=== PATIENT | male | born 1970 | race Caucasian/White ===

== ENCOUNTER 2018-10-01 22:16 | Emergency (ER) | payer OTHER ==
[~2018-10-01] VITALS: Ht 165.1 cm; Wt 71.2 kg
[2018-10-01 22:28] VITALS: Ht 165.1 cm; Wt 71.2 kg
--- NOTE | 2018-10-01 23:41 | ERD ---
ER Documentation Chief Complaint Chief Complaint chest pain/anxiety x 1 week HPI This is a 48-year-old male with a past history of anxiety, who presents with chest pain for the last week. Pain is described as nonexertional, it is as sociated with carpopedal spasms, tingling of his nails, and an impending feeling of doom. Patient states that he has been under a lot of stress lately from work, and has felt increasingly anxious. He denies leg swelling, hemoptysis, he does not smoke or drink, he has no history of hypertension, no history of hyperlipidemia, no history of diabetes. ROS All systems reviewed and are negative except as per history of present illness. Medications Home Meds Active Scripts Lorazepam* (Ativan*) 0.5 Mg Tablet, 0.5 MG PO Q8, #7 TAB Prov:GLORIA CADE MD 10/02/18 Allergies Allergies: Coded Allergies: No Known Drug Allergies (Verified Allergy, Unknown, 10/01/18) Physical Exam Vitals Vital Signs Date Temp Pulse Resp B/P (MAP) Pulse Ox O2 O2 Flow FiO2 Time Delivery Rate 10/02/18 99 21 127/88 100 Room Air 02:06 (101) 10/02/18 98.5 89 24 133/87 98 Room Air 00:33 (102) 10/01/18 97.2 116 18 150/88 98 22:28 (108) Physical Exam Const: No acute distress Head: Atraumatic Eyes: Normal Conjunctiva ENT: Normal External Ears, Nose and Mouth. Neck: Full range of motion. No meningismus. Resp: Clear to auscultation bilaterally Cardio: Regular rate and rhythm, no murmurs Abd: Soft, non tender, non distended. Normal bowel sounds Skin: No petechiae or rashes Back: No midline or flank tenderness Ext: No cyanosis, or edema Neur: Awake and alert Psych: Normal Mood and Affect Result Diagram: 10/01/18 0000 10/01/18 0000 Results 24 hrs Laboratory Tests Test 10/01/18 00:00 White Blood Count 12.5 10^3/ul Red Blood Count 5.52 10^6/ul Hemoglobin 15.4 g/dl Hematocrit 47.4 % Mean Corpuscular Volume 85.9 fl Mean Corpuscular Hemoglobin 27.9 pg Mean Corpuscular Hemoglobin Concent 32.5 g/dl Red Cell Distribution Width 13.1 % Platelet Count 293 10^3/UL Mean Platelet Volume 9.6 fl Immature Granulocytes % 0.900 % Neutrophils % 71.8 % Lymphocytes % 16.0 % Monocytes % 8.8 % Eosinophils % 1.8 % Basophils % 0.7 % Nucleated Red Blood Cells % 0.0 /100WBC Immature Granulocytes # 0.110 10^3/ul Neutrophils # 9.0 10^3/ul Lymphocytes # 2.0 10^3/ul Monocytes # 1.1 10^3/ul Eosinophils # 0.2 10^3/ul Basophils # 0.1 10^3/ul Nucleated Red Blood Cells # 0.0 10^3/ul Prothrombin Time 11.6 Sec Prothrombin Time Ratio 0.9 INR International Normalized Ratio 0.84 Sodium Level 139 mmol/L Potassium Level 4.2 mmol/L Chloride Level 100 mmol/L Carbon Dioxide Level 31 mmol/L Anion Gap 8 Blood Urea Nitrogen 21 mg/dl Creatinine 1.14 mg/dl Est Glomerular Filtrat Rate mL/min > 60 mL/min Glucose Level 100 mg/dl Calcium Level 9.7 mg/dl Total Bilirubin 0.1 mg/dl Direct Bilirubin 0.00 mg/dl Indirect Bilirubin 0.1 mg/dl Aspartate Amino Transf (AST/SGOT) 20 IU/L Alanine Aminotransferase (ALT/SGPT) 16 IU/L Alkaline Phosphatase 91 IU/L Troponin I < 0.012 ng/ml Total Protein 7.9 g/dl Albumin 4.3 g/dl Globulin 3.60 g/dl Albumin/Globulin Ratio 1.19 Procedures/MDM 48-year-old male who presents for evaluation of chest pain. This pain is atypical in nature, given that is nonexertional, it appears that last moments, and is very situational. Based on his heart score, he is low risk, I did consider an anxiety reaction, however I did evaluate from for acute coronary syndrome, given male sex and age of 48. His cardiac workup was negative, he requested medication for anxiety, I provided him a short course, but nevertheless, advised him to follow-up within 48 hours, for further cardiac evaluation, the patient agreed to this, I advised him to return to the ED, if he is not able to obtain follow-up, and her to return immediately should his chest pain change in quality, nature, duration, or severity. Patient agreed to this, at discharge she was in no acute distress. Chest X-ray 1V Interpreted by me: Soft Tissue: No acute abnormalities Bones: No acute abnormalities Mediastinum/Cardiac Silhouette/Lungs: No acute abnormalities EKG: Rate/Rhythm: Normal Sinus Rhythm QRS, ST, T-waves: No changes consistent w/ acute ischemia Impression: No evidence of ischemia or arrhythmia Repeat EKG: Rate/Rhythm: Normal Sinus Rhythm QRS, ST, T-waves: No changes consistent w/ acute ischemia Impression: No evidence of ischemia or arrhythmia Departure Diagnosis: Primary Impression: Chest pain Chest pain type: unspecified Qualified Codes: R07.9 - Chest pain, unspecified GLORIA CADE MD Oct 01, 2018 23:41
[2018-10-02 02:06] VITALS: BP 127/88; PULSE 99; RESP 21
[2018-10-02] MEDS ORDERED: LORA-441 PO (02:08)
== END 2018-10-02 02:27 | disposition home or self-care (01) ==
LOC: E/R 22:16
DX: R07.9 Chest pain, unspecified (principal); R40.2142 Coma scale, eyes open, spontaneous, at arrival to emergency department; R40.2362 Coma scale, best motor response, obeys commands, at arrival to emergency department; R40.2252 Coma scale, best verbal response, oriented, at arrival to emergency department
CPT/HCPCS: 71045; 80053; 84484; 85025; 85610; Z7502

== ENCOUNTER 2018-10-26 20:18 | Emergency (ER) | payer OTHER ==
[~2018-10-26] VITALS: Ht 167.6 cm; Wt 69.0 kg
[~2018-10-26 20:18] MED LIST: LORA-441 PO
[2018-10-26 20:24] VITALS: Ht 167.6 cm; Wt 69.0 kg
[2018-10-26 22:30] VITALS: BP 126/80; PULSE 98; RESP 20
--- NOTE | 2018-10-27 01:22 | ERD ---
ER Documentation Chief Complaint Chief Complaint bilateral hand numbness x1 month. worse tonight. denies cp/sob/dizziness HPI Is a 48 mL complex bilateral hand numbness on and off for the past month. He said it was worse. He denies chest pain shortness of breath or dizziness. Denies any nausea vomiting fevers or chills. He denies any other current complaints. Patient complains of spasms in his carpal and pedal systems. Shilpa ent denies anxiety. Denies suicidal or homicidal ideation. ROS All systems reviewed and are negative except as per history of present illness. Medications Home Meds Active Scripts Lorazepam* (Ativan*) 0.5 Mg Tablet, 0.5 MG PO Q8, #7 TAB Prov:GLORIA CADE MD 10/02/18 Allergies Allergies: Coded Allergies: No Known Drug Allergies (Verified Allergy, Unknown, 10/01/18) PMhx/Soc History of Surgery: No Anesthesia Reaction: No Hx Neurological Disorder: No Hx Respiratory Disorders: No Hx Cardiac Disorders: No Hx Psychiatric Problems: No Hx Miscellaneous Medical Probl: Yes (Prediabetic) Hx Alcohol Use: Yes (Socially) Hx Substance Use: No Hx Tobacco Use: Yes (Quit in 1998) Smoking Status: Former smoker Physical Exam Vitals Vital Signs Date Temp Pulse Resp B/P (MAP) Pulse Ox O2 O2 Flow FiO2 Time Delivery Rate 10/26/18 97.8 98 20 126/80 98 Room Air 22:30 (95) 10/26/18 97.8 107 20 131/79 98 20:24 (96) Physical Exam Const: No acute distress Head: Atraumatic Eyes: Normal Conjunctiva ENT: Normal External Ears, Nose and Mouth. Neck: Full range of motion. No meningismus. Resp: Clear to auscultation bilaterally Cardio: Regular rate and rhythm, no murmurs Abd: Soft, non tender, non distended. Normal bowel sounds Skin: No petechiae or rashes Back: No midline or flank tenderness Ext: No cyanosis, or edema Neur: Awake and alert Psych: Normal Mood and Affect Result Diagram: 10/26/18 2300 10/26/18 230 Results 24 hrs Laboratory Tests Test 10/26/18 23:00 White Blood Count 10.8 10^3/ul Red Blood Count 5.20 10^6/ul Hemoglobin 14.6 g/dl Hematocrit 44.3 % Mean Corpuscular Volume 85.2 fl Mean Corpuscular Hemoglobin 28.1 pg Mean Corpuscular Hemoglobin Concent 33.0 g/dl Red Cell Distribution Width 12.9 % Platelet Count 332 10^3/UL Mean Platelet Volume 9.3 fl Immature Granulocytes % 0.600 % Neutrophils % 69.2 % Lymphocytes % 21.4 % Monocytes % 6.7 % Eosinophils % 1.5 % Basophils % 0.6 % Nucleated Red Blood Cells % 0.0 /100WBC Immature Granulocytes # 0.060 10^3/ul Neutrophils # 7.5 10^3/ul Lymphocytes # 2.3 10^3/ul Monocytes # 0.7 10^3/ul Eosinophils # 0.2 10^3/ul Basophils # 0.1 10^3/ul Nucleated Red Blood Cells # 0.0 10^3/ul Prothrombin Time 13.1 Sec Prothrombin Time Ratio 1.0 INR International Normalized Ratio 0.98 Activated Partial Thromboplast Time 25.4 Sec Sodium Level 140 mmol/L Potassium Level 3.7 mmol/L Chloride Level 101 mmol/L Carbon Dioxide Level 29 mmol/L Anion Gap 10 Blood Urea Nitrogen 17 mg/dl Creatinine 0.95 mg/dl Est Glomerular Filtrat Rate mL/min > 60 mL/min Glucose Level 91 mg/dl Calcium Level 9.5 mg/dl Total Bilirubin 0.4 mg/dl Direct Bilirubin 0.00 mg/dl Indirect Bilirubin 0.4 mg/dl Aspartate Amino Transf (AST/SGOT) 20 IU/L Alanine Aminotransferase (ALT/SGPT) 20 IU/L Alkaline Phosphatase 105 IU/L Troponin I < 0.012 ng/ml B-Type Natriuretic Peptide 24 PG/ML Total Protein 7.9 g/dl Albumin 4.2 g/dl Globulin 3.70 g/dl Albumin/Globulin Ratio 1.13 Thyroid Stimulating Hormone (TSH) 1.720 MIU/L Free Thyroxine Index 2.80 ug/ml Thyroxine (T4) 7.1 ug/dl Triiodothyronine (T3) Uptake 39.5 % Procedures/MDM Emergency room course: Patient seen in all major measures. + From the evaluation. Had blood work done. Anesthetic agent/chest x-ray. Diagnostic data: EKG: Rate/Rhythm: [Normal Sinus Rhythm] QRS, ST, T-waves: [No changes consistent w/ acute ischemia] Impression: [No evidence of ischemia or arrhythmia] Chest X-ray 1V Interpreted by me: Soft Tissue: No acute abnormalities Bones: No acute abnormalities Mediastinum/Cardiac Silhouette/Lungs: [No acute abnormalities] Medical decision making: This very pleasant patient comes in because a carpal pedal spasms and hand numbness and swelling. It is possible the patient is having Raynaud's phenomena as he says that it is worse in the mornings and gets better throughout the day. However this time it is not seem to have an emergent condition and can follow-up as an outpatient. Is been told to return for worsening symptoms. Departure Diagnosis: Primary Impression: Numbness Condition: Stable DEBORAH GRIMM Oct 27, 2018 01:22
[2018-10-27] MEDS ORDERED: LORA-441 PO (01:23)
== END 2018-10-27 03:17 | disposition home or self-care (01) ==
LOC: E/R 20:18
DX: R20.0 Anesthesia of skin (principal); R07.9 Chest pain, unspecified; Z87.891 Personal history of nicotine dependence
CPT/HCPCS: 36415; 71045; 72040; 80053; 83880; 84436; 84443; 84479; 84484; 85025; 85610; 85730; 93005; Z7502